=== PATIENT | male | born 1955 | race Caucasian/White ===

== ENCOUNTER 2019-04-04 22:05 | Emergency (ER) | payer OTHER ==
[2019-04-04 22:13] VITALS: BP 127/99
[2019-04-04 22:18] VITALS: PULSE 90; RESP 18; TEMP 97.5
--- NOTE | 2019-04-04 22:18 | ED ---
Fall HPI - General Stated Complaint: Fall,ETOH Time Seen by Provider: 04/04/19 22:06 Source: EMS Mode of arrival: EMS - History of Present Illness Initial Comments: Evidence of a 63-year-old alcoholic male who is brought to the ER today with police and EMS. Police were called by the patient's friend because patient was intoxicated. Police arrived on scene they found the patient intoxicated however we'll talk to them the patient had a mechanical trip and fall backward striking his head on the ground and had a period of unconsciousness which prompted them to bring him to the ER for evaluation. Upon arrival in the ER the patient admits to being intoxicated denies any pain or injury. He is noted to have an abrasion to back of scalp. - Related Data Home Medications Medication Instructions Recorded Confirmed No Known Home Medications 11/07/15 04/04/19 Allergies Allergy/AdvReac Type Severity Reaction Status Date / Time No Known Allergies Allergy Verified 04/04/19 22:49 Review of Systems ROS Statement: Those systems with pertinent positive or pertinent negative responses have been documented in the HPI. ROS Other: All systems not noted in ROS Statement are negative. Past Medical History Past Medical History: No Reported History History of Any Multi-Drug Resistant Organisms: None Reported Past Surgical History: No Surgical Hx Reported Past Psychological History: No Psychological Hx Reported Smoking Status: Current every day smoker Past Alcohol Use History: Heavy Past Drug Use History: Marijuana General Exam - General Exam Comments Initial Comments: Physical Exam GENERAL: Appears older than stated age Strong odor of alcohol HENT: Normocephalic Abrasion to posterior scalp Poor dentition EYES: PERRL, EOMI PULMONARY: Unlabored respirations. No audible rales rhonchi or wheezing was noted. CARDIOVASCULAR: There is a regular rate and rhythm without any murmurs gallops or rubs. ABDOMEN: Soft and nontender with normal bowel sounds. SKIN: Skin is clear with no lesions or rashes and otherwise unremarkable. : Deferred NEUROLOGIC: Patient is alert and oriented x3. Moving all extremities spontaneously Speech is slurred MUSCULOSKELETAL: Normal extremities with adequate strength and full range of motion. No lower extremity swelling or edema. No calf tenderness. PSYCHIATRIC: Normal psychiatric evaluation. Course Vital Signs 04/04/19 22:08 Temperature 97.5 F L Pulse Rate 90 Respiratory 18 Rate Blood Pressure 127/99 O2 Sat by Pulse 98 Oximetry Medical Decision Making - Medical Decision Making She was seen and evaluated upon arrival in the emergency department. Patient presented with alcohol intoxication and an apparent fall with head injury. Head CT was obtained and was negative for acute injury. Patient declined to participate in breath alcohol testing. Patient refused blood work. Patient was agitated and combative throughout his stay in the emergency department. Patient ambulating out of his room, cursing at staff, threatening, asking to leave. Police were contacted who arrived at bedside and escorted the patient out of the department in their custody. Disposition Clinical Impression: Fall, Alcohol intoxication Disposition: HOME SELF-CARE Condition: Stable Is patient prescribed a controlled substance at d/c from ED?: No Referrals: Bird Snow MD [Primary Care Provider] - 1-2 days
--- NOTE | 2019-04-04 22:59 | CT ---
EXAMINATION TYPE: CT brain sherry wo con DATE OF EXAM: 04/04/2019 COMPARISON: CT brain 12/12/2009 HISTORY: ETOH. Fall. Patient uncooperative and unwilling to listent to direction. CT DLP: 1557.3 mGycm Automated exposure control for dose reduction was used. TECHNIQUE: CT scan of the head and cervical spine are performed without contrast. FINDINGS: Ventricles and sulci appear normal. There is no mass effect nor midline shift. There is n o sign of intracranial hemorrhage. Calvarium is intact. Skull base is intact. There is limited pneuma tization of the right side mastoid sinus. Cervical vertebra have normal alignment. There is anterior spurring in the mid and lower cervical spi ne. Posterior elements are intact. There is no compression fracture. Facet joints are intact. There i s bullous emphysema in the upper lobes. There is probably scarring at the lung apices. IMPRESSION: Negative CT scan of the brain. Right mastoiditis. No change. Negative CT scan of the cervical spine. Mild spondylotic changes. No fracture. Bullous pulmonary emphysema.
== END 2019-04-05 00:37 | disposition home or self-care (01) ==
LOC: EC 22:05
DX: F10.129 Alcohol abuse with intoxication, unspecified (principal); S00.01XA Abrasion of scalp, initial encounter; F17.200 Nicotine dependence, unspecified, uncomplicated; W01.198A Fall on same level from slipping, tripping and stumbling with subsequent striking against other object, initial encounter
CPT/HCPCS: 70450; 72125; 99284

== ENCOUNTER 2020-10-07 20:20 | Emergency (ER) | payer MEDICARE, OTHER ==
[2020-10-07 21:41] VITALS: RESP 18; TEMP 98.6
[2020-10-07] MEDS ORDERED: DIPH,PERTUS(ACELL)TETVAC-LF 0.5 ML VIAL IM ONE (21:47)
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
[2020-10-08 01:04] VITALS: BP 118/80; PULSE 76
== END 2020-10-07 23:30 | disposition home or self-care (01) ==
LOC: EC 20:20
DX: S01.81XA Laceration without foreign body of other part of head, initial encounter (principal); S51.011A Laceration without foreign body of right elbow, initial encounter; F17.200 Nicotine dependence, unspecified, uncomplicated; X99.1XXA Assault by knife, initial encounter
CPT/HCPCS: 99283

== ENCOUNTER 2023-08-11 21:48 | Emergency (ER) | payer MEDICARE, OTHER ==
--- NOTE | 2023-08-11 21:52 | ED ---
Head Injury HPI - General Stated complaint: fall head injury Time Seen by Provider: 08/11/23 21:52 Source: EMS - History of Present Illness Initial comments: 67-year-old male presenting with chief complaint of head injury. Patient had a fall from standing, admits to alcohol. He was brought in by EMS. He has laceration to the occipital scalp with bandage applied by EMS. Denies blood thinners. Denies any other injuries. Injury occurred around 2100. No nausea, vomiting, dizziness, headache, vision or hearing changes, numbness, tingling, weakness - Related Data Home Medications Medication Instructions Recorded Confirmed No Known Home Medications 11/07/15 04/04/19 Allergies/Adverse reactions: Allergies Allergy/AdvReac Type Severity Reaction Status Date / Time No Known Allergies Allergy Verified 10/07/20 21:41 Review of Systems ROS Statement: Those systems with pertinent positive or pertinent negative responses have been documented in the HPI. ROS Other: All systems not noted in ROS Statement are negative. Past Medical History Past Medical History: No Reported History History of Any Multi-Drug Resistant Organisms: None Reported Past Surgical History: No Surgical Hx Reported Past Psychological History: No Psychological Hx Reported Smoking Status: Current every day smoker Past Alcohol Use History: Heavy Past Drug Use History: Marijuana General Exam General appearance: alert, in no apparent distress Expanded Head exam: Present: laceration (3 cm scalp laceration) Eye exam: Present: normal appearance, PERRL, EOMI Neck exam: Present: normal inspection Respiratory exam: Present: normal lung sounds bilaterally. Absent: respiratory distress, wheezes, rales, rhonchi, stridor Cardiovascular Exam: Present: regular rate, normal rhythm, normal heart sounds. Absent: systolic murmur, diastolic murmur, rubs, gallop, clicks Extremities exam: Present: normal inspection Neurological exam: Present: alert, oriented X3 Expanded Eye Response: (4) open spontaneously Motor Response: (6) obeys commands Verbal Response: (5) oriented Maribel Total: 15 Psychiatric exam: Present: normal affect, normal mood Course Vital Signs 08/11/23 08/12/23 21:50 00:05 Temperature 98.8 F Pulse Rate 70 84 Respiratory 18 18 Rate Blood Pressure 135/94 128/83 O2 Sat by Pulse 98 96 Oximetry Procedures - Laceration Laceration #1 Consent Obtained: verbal consent Indication: laceration Site: scalp Size (cm): 3 Description: linear Depth: simple, single layer Type of Sutures: other (stephenie) Number of Sutures: 4 Medical Decision Making - Medical Decision Making Was pt. sent in by a medical professional or institution ([facility] Miranda, TRANSITION MANAGER, urgent care, hospital, or assisted...) When possible be specific @ -No Did you speak to anyone other than the patient for history (EMS, parent, family, police, friend...)? What history was obtained from this source @ -EMS Did you review nursing and triage notes (agree or disagree)? Why? @ -I reviewed and agree with nursing and triage notes Were old charts reviewed (outside hosp., previous admission, EMS record, old EKG, old radiological studies, urgent care reports/EKG's, assisted records)? Report findings @ -No old charts were reviewed Differential Diagnosis (chest pain, altered mental status, abdominal pain women, abdominal pain men, vaginal bleeding, weakness, fever, dyspnea, syncope, headache, dizziness, GI bleed, back pain, seizure, CVA, palpatations, mental health, musculoskeletal)? @ -Differential includes laceration, intracranial hemorrhage, fracture, concussion, this is not an all-inclusive list EKG interpreted by me (3pts min.). @ -As above X-rays interpreted by me (1pt min.). @ -None done CT interpreted by me (1pt min.). @ -CT shows no acute fracture or dislocation evident in the cervical spine. No acute intracranial hemorrhage or midline shift is seen. U/S interpreted by me (1pt. min.). @ -None done What testing was considered but not performed or refused? (CT, X-rays, U/S, labs)? Why? @ -None What meds were considered but not given or refused? Why? @ -None Did you discuss the management of the patient with other professionals (professionals i.e. OSWALDO Miranad, TRANSITION MANAGER, lab, RT, psych nurse, manager social, wood processing worker, teacher, returning officer, bilingual patient support caseworker)? Give summary @ -No Was smoking cessation discussed for >3mins.? @ -No Was critical care preformed (if so, how long)? @ -No Were there social determinants of health that impacted care today? How? (Homelessness, low income, unemployed, alcoholism, drug addiction, transportation, low edu. Level, literacy, decrease access to med. care, skilled nursing, rehab)? @ -No Was there de-escalation of care discussed even if they declined (Discuss DNR or withdrawal of care, Hospice)? DNR status @ -No What co-morbidities impacted this encounter? (DM, HTN, Smoking, COPD, CAD, Cancer, CVA, ARF, Chemo, Hep., AIDS, mental health diagnosis, sleep apnea, morbid obesity)? @ -None Was patient admitted / discharged? Hospital course, mention meds given and route, prescriptions, significant lab abnormalities, going to OR and other pertinent info. @ -67-year-old male presenting with chief complaint of head injury. Brought in by EMS. No blood thinners. C-collar is placed by EMS. Patient does have a 3 cm laceration to the scalp. CT of the brain and cervical spine was obtained, patient was then placed in an exam room. I examined the patient and he had GCS of 15 with no focal neurological deficits. Negative CT of the brain and cervical spine. C-collar was removed. Laceration was repaired. Patient was observed until clinically sober and provided with a cab ride home. Follow-up with PCP. Report back to ER with any new or worsening symptoms. Discussed return parameters and answered all questions. Patient conveyed verbal understanding and agreed to the plan. I discussed this case in detail with my attending Dr. Mayberry Undiagnosed new problem with uncertain prognosis? @ -No Drug Therapy requiring intensive monitoring for toxicity (Heparin, Nitro, Insulin, Cardizem)? @ -No Were any procedures done? @ -No Diagnosis/symptom? @ -Head injury, scalp laceration Acute, or Chronic, or Acute on Chronic? @ -Acute Uncomplicated (without systemic symptoms) or Complicated (systemic symptoms)? @ -Uncomplicated Side effects of treatment? @ -No Exacerbation, Progression, or Severe Exacerbation? @ -No Poses a threat to life or bodily function? How? (Chest pain, USA, LA, pneumonia, PE, COPD, DKA, ARF, appy, cholecystitis, CVA, Diverticulitis, Homicidal, Suicidal, threat to staff... and all critical care pts) @ -No Disposition Clinical Impression: Head injury, Scalp laceration Disposition: HOME SELF-CARE Condition: Good Instructions (If sedation given, give patient instructions): Head Injury (ED), Staple Care (ED), Head Laceration (ED) Additional Instructions: Follow-up with PCP. Report back to ER with any new or worsening symptoms. [place] can be removed in 5 to 7 days. Is patient prescribed a controlled substance at d/c from ED?: No Referrals: None,Stated [Primary Care Provider] - 1-2 days Dillon Corbett MD [STAFF PHYSICIAN] - 1-2 days Time of Disposition: 01:00
[2023-08-11 22:27] VITALS: RESP 18; TEMP 98.8
--- NOTE | 2023-08-11 22:53 | CT ---
EXAMINATION TYPE: CT brain cspine wo con DATE OF EXAM: 08/11/2023 COMPARISON: CT Trauma April 04, 2019 HISTORY: ETOH, fell down the stairs. lac to posterior head CT DLP: 1580.4 mGycm. Automated Exposure Control for Dose Reduction was Utilized. TECHNIQUE: CT scan of the head and cervical spine are performed without contrast. FINDINGS: There is no acute intracranial hemorrhage, mass effect, or midline shift identified. The ventricles and sulci are within normal limits in size. There is mild/moderate low attenuation in the deep and periventricular white matter on current study. 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 The calvarium is intact. The globes are intact and the visualized sinuses are clear. Cervical spine is visualized in its entirety from C1 through upper thoracic levels and the demonstrat ed slight scoliotic curvature without evidence of acute fracture or dislocation. Prevertebral soft t issue appears within normal limits. The C1-C2 articulation is within normal limits on the coronal im ages. Vertebral body heights are maintained. Mild to moderate multilevel disc space narrowing is red emonstrated. Axial images demonstrate multilevel uncovertebral facet degenerative changes bilaterally . Lung apices show emphysematous change and parenchymal scarring similar to prior. Moderate to severe calcified plaque bilateral carotid bulb level is more prominent from prior. IMPRESSION: 1. There is no acute fracture or dislocation evident in the cervical spine. 2. No acute intracranial hemorrhage or midline shift is seen.
[2023-08-11] MEDS: DIPH,PERTUS(ACELL)TETVAC-LF 0.5 ML VIAL IM ONE (23:46)
[2023-08-12 00:37] VITALS: BP 128/83; PULSE 84
== END 2023-08-12 01:47 | disposition home or self-care (01) ==
LOC: EC 21:48
DX: S01.01XA Laceration without foreign body of scalp, initial encounter (principal); F12.90 Cannabis use, unspecified, uncomplicated; F17.200 Nicotine dependence, unspecified, uncomplicated; Z23 Encounter for immunization; W18.30XA Fall on same level, unspecified, initial encounter
CPT/HCPCS: 12002; 70450; 72125; 82075; 90471; 90715; 99283